=== PATIENT | male | born 1990 | race Caucasian/White ===

== ENCOUNTER 2024-08-01 14:10 | Emergency (ER) | payer BC ==
[2024-08-01 15:14] LABS: BASOPHILS PERCENT AUTO 0.5 % (0.0-1.0); HEMATOCRIT 40.2 % (40.0-54.0); LYMPHOCYTES PERCENT AUTO 33.4 % (20.5-50.1); MEAN CORPUSCULAR HEMOGLOBIN 31.3 pg (27.0-34.0); MEAN CORPUSCULAR HGB CONC 34.8 g/dL (33.0-35.0); MEAN CORPUSCULAR VOLUME 89.7 fL (80-100); MONOCYTES PERCENT AUTO 8.6 % (2-8); NEUTROPHILS PERCENT AUTO 56.5 % (42.2-75.2); PLATELET COUNT,PLT 322 10^3/uL (150-450); RED BLOOD CELL COUNT 4.48 10^6/uL (4.6-6.2); WHITE BLOOD CELL COUNT,WBC 6.1 10^3/uL (5.0-10.0)
[2024-08-01 15:39] LABS: PROTHROMBIN TIME 10.4 SEC (9.0-12.0); PTT,PARTIAL THROMBOPLSTIN TIME 25.6 SEC (22.0-34.0)
[2024-08-01 15:41] LABS: A/G RATIO 1.2; ALANINE AMINOTRANSFERASE,ALT 23 U/L (16-63); ALBUMIN 4.3 g/dL (3.4-5.0); ALKALINE PHOSPHATASE 46 U/L (46-116); ANION GAP 13.9 mEq/L (7-13); ASPARTATE AMNIOTRANSFERASE,AST 18 U/L (15-37); BILIRUBIN TOTAL 0.5 mg/dL (0.2-1.0); BLOOD UREA NITROGEN,BUN 11 mg/dL (7-18); BUN/CREATININE RATIO 12.5 (No establ ref range); CALCIUM 9.4 mg/dL (8.5-10.1); CARBON DIOXIDE,CO2 30 mmol/L (21-32); CHLORIDE,CL 105 mmol/L (98-107); CREATININE 0.88 mg/dL (0.70-1.30); GLUCOSE RANDOM 92 mg/dL (70-99); LIPASE 32 U/L (16-77); POTASSIUM,K 3.9 mmol/L (3.5-5.1); PROTEIN TOTAL,TP 7.8 g/dL (6.4-8.2); SODIUM,NA 145 mmol/L (136-145)
[2024-08-01 15:44] LABS: ESTIMATED GFR 116 mL/min (>=60)
[2024-08-01] MEDS: GI Cocktail Oral Solution 30 ML PO ONE (16:37)
== END 2024-08-01 17:03 | disposition home or self-care (01) ==
LOC: DL.ED 14:10
DX: K29.70 Gastritis, unspecified, without bleeding (principal); T39.395A Adverse effect of other nonsteroidal anti-inflammatory drugs [NSAID], initial encounter; Z86.16 Personal history of COVID-19
CPT/HCPCS: 36415; 80053; 83690; 85025; 85610; 85730; 99284; A9270-GY

== ENCOUNTER 2025-04-30 09:24 | Emergency (ER) | payer BC | END 2025-04-30 10:26 | disposition home or self-care (01) | LOC: DL.ED 09:24 | DX: S81.851A Open bite, right lower leg, initial encounter (principal); Z86.16 Personal history of COVID-19; W54.0XXA Bitten by dog, initial encounter; Y93.89 Activity, other specified | CPT/HCPCS: 99283 ==